=== PATIENT | female | born 1940 | race Caucasian/White ===

== ENCOUNTER 2018-02-18 15:05 | Emergency (ER) | payer OTHER ==
[~2018-02-18] VITALS: Ht 170.2 cm; Wt 90.7 kg
[2018-02-18] MEDS ORDERED: LISINOPRIL (15:13)
[2018-02-18] MEDS ORDERED: ATENOLOL (15:13)
[2018-02-18] MEDS ORDERED: PROZAC (15:13)
[2018-02-18] MEDS ORDERED: ACETAMINOPHEN ES 500 MG TABLET PO ONE (15:45)
[2018-02-18] MEDS ORDERED: LIDOCAINE HCL 2% 20 ML VIAL TP ONE (15:45)
[2018-02-18] MEDS ORDERED: TDAP DIPH,PERTUSS,TET VAC/PF 0.5 ML DISP.SYRIN IM ONE ×2 (15:45→15:57)
[2018-02-18] MEDS ORDERED: NEOMY/BACITRA/POLYMYXIN B OINT UD PACKET TP ONE ×2 (15:45→15:57)
[2018-02-18] MEDS ORDERED: LET TOPICAL SOLUTION 8 ML UDC TOP ONE (15:45)
[2018-02-18] MEDS ORDERED: SODIUM BICARBONATE 4.2 % (NEUT) 5 ML VIAL TP ONE (15:45)
[2018-02-18] MEDS ORDERED: ACETAMINOPHEN ES 500 MG TABLET ONE (15:56)
[2018-02-18] MEDS ORDERED: LET TOPICAL SOLUTION 8 ML UDC ONE (15:57)
[2018-02-18] MEDS ORDERED: LIDOCAINE HCL 2% 20 ML VIAL ONE (15:57)
[2018-02-18] MEDS ORDERED: SODIUM BICARBONATE 4.2 % (NEUT) 5 ML VIAL ONE (15:57)
[2018-02-18] MEDS ORDERED: CEPHALEXIN MONOHYDRATE 250 MG CAPSULE PO ONE (18:30)
--- NOTE | 2018-02-18 18:32 | NUR ---
Patient discharged to home in stable conditon. Written and verbal after care instructions given. Patient verbalizes understanding of instructions. Ambreen called for pt per her request. Pt ambulated out of ER to waiting room with steady gait.
[2018-02-18] MEDS ORDERED: CEPHALEXIN MONOHYDRATE 500 MG CAPSULE ONE (18:33)
== END 2018-02-18 18:33 | disposition home or self-care (01) ==
LOC: ER 15:06
DX: S81.811A Laceration without foreign body, right lower leg, initial encounter (principal); I10 Essential (primary) hypertension; E78.5 Hyperlipidemia, unspecified; X58.XXXA Exposure to other specified factors, initial encounter; Y93.89 Activity, other specified; Y92.89 Other specified places as the place of occurrence of the external cause; Y99.8 Other external cause status
CPT/HCPCS: 12005; 73590; 90471; 90715; 99284; A4217; A4663; A9150; J3490 ×2